=== PATIENT | male | born 1960 | race African-American/Black ===

== ENCOUNTER 2018-09-28 08:14 | Inpatient (IN) | payer OTHER ==
[~2018-09-28] VITALS: Ht 170.2 cm; Wt 57.6 kg
[2018-09-28] MEDS ORDERED: ONDANSETRON HCL 4MG/2ML INJ IV STA (08:30)
[2018-09-28] MEDS ORDERED: SODIUM CHLORIDE 0.9% 1,000 ML IV ONE ×2 (08:30→09:29)
[2018-09-28] MEDS ORDERED: LORAZEPAM 2MG/ML CPJ IV ONE ×3 (08:45→10:00)
[2018-09-28 08:59] LABS: HEMATOCRIT. 40.9 % (42.0-52.0); HEMOGLOBIN. 14.2 g/dL (14.0-18.0); MEAN CORPUSCULAR HEMOGLOBIN 34.3 pg (28.0-32.0); MEAN CORPUSCULAR VOLUME 99.1 fL (80.0-94.0); MEAN PLATELET VOLUME 6.8 fl (7.4-10.4); PLATELET 193 x1000/uL (130-400); RED BLOOD CELL COUNT 4.12 mill/uL (4.7-6.1); RED CELL DISTRIBUTION WIDTH 13.3 % (11.6-14.6)
[2018-09-28 09:05] LABS: CHLORIDE 96 mEq/L (98-107)
[2018-09-28 09:06] LABS: INR 0.9; PARTIAL THROMBOPLASTIN TIME 26.4 sec (23.4-31.0); PROTHROMBIN TIME 9.5 sec (9.6-11.0)
[2018-09-28 09:09] LABS: ETHANOL BLOOD 13 mg/dL
[2018-09-28] MEDS ORDERED: POTASSIUM CHLORIDE 20MEQ TABLET SR PO ONE (09:30)
[2018-09-28 09:42] LABS: PLATELET ESTIMATE NORMAL
[2018-09-28] MEDS ORDERED: HYDRALAZINE 20MG/ML VIAL IV PRN (16:00)
[2018-09-28] MEDS ORDERED: LORAZEPAM 2MG/ML CPJ IV PRN (16:00)
[2018-09-28] MEDS ORDERED: CLONIDINE 0.1MG TABLET PO PRN (16:00)
[2018-09-28] MEDS ORDERED: IPRATROPIUM/ALBUTEROL 0.5-3(2.5)MG/3ML NEB INH PRN (16:00)
[2018-09-28] MEDS ORDERED: DOCUSATE SODIUM 100MG CAPSULE PO PRN (16:00)
[2018-09-28] MEDS ORDERED: MAGNESIUM/ALUMINUM HYDROXIDE/SIMETHICONE 30ML UDC PO PRN (16:00)
[2018-09-28] MEDS ORDERED: GUAIFENESIN 200MG/10ML SUGAR FREE UDC PO PRN (16:00)
[2018-09-28] MEDS ORDERED: ACETAMINOPHEN 325MG TABLET PO PRN (16:00)
[2018-09-28] MEDS ORDERED: DIPHENHYDRAMINE 50MG/ML VIAL IV PRN (16:00)
[2018-09-28] MEDS ORDERED: HYDROCODONE/ACETAMINOPHEN 10/325MG TABLET PO PRN (16:00)
[2018-09-28] MEDS ORDERED: NA PHOS,M-B/NA PHOS,DI-BA ENEMA 118ML PR PRN (16:00)
[2018-09-28] MEDS ORDERED: ONDANSETRON HCL 4MG/2ML INJ IV PRN (16:00)
[2018-09-28 16:43] LABS: CLARITY URINE CLEAR (CLEAR); COLOR URINE YELLOW (YELLOW); KETONES URINE 1+ (NEGATIVE); LEUKOCYTE ESTERASE URINE NEGATIVE (NEGATIVE); NITRITE URINE NEGATIVE (NEGATIVE); OCCULT BLOOD URINE 1+ (NEGATIVE); PH URINE 5.5 (4.5-8.0); PROTEIN URINE TRACE (NEGATIVE); UROBILINOGEN URINE 0.2 E.U./dL (0.2-1.0)
[2018-09-28 16:55] LABS: *BARBITURATES SCREEN URINE NEGATIVE (NEGATIVE); CANNABINOID URINE SCREEN NEGATIVE (NEGATIVE); PHENCYCLIDINE URINE SCREEN NEGATIVE (NEGATIVE)
[2018-09-28 16:56] LABS: *AMPHETAMINES SCREEN URINE PRESUMTIVE POSITIVE (NEGATIVE); *BENZODIAZEPINES SCREEN URINE NEGATIVE (NEGATIVE); *COCAINE SCREEN URINE NEGATIVE (NEGATIVE); METHADONE URINE SCREEN NEGATIVE (NEGATIVE); OPIATES URINE SCREEN NEGATIVE (NEGATIVE)
[2018-09-28] MEDS: SODIUM CHLORIDE 0.45% 1,000 ML IV SCH (17:11)
[2018-09-28] MEDS: ENOXAPARIN 40MG/0.4ML SYR SUBCUT SCH (17:12)
[2018-09-28] MEDS: SODIUM CHLORIDE 0.9% INJ 3ML FLUSH IVF SCH (22:00)
[2018-09-28 22:35] VITALS: BP 154/80
[2018-09-29] VITALS: BP 148/70
[2018-09-29] MEDS ORDERED: ACET-2178 MT (02:11)
[2018-09-29] MEDS ORDERED: IBUP100T7 PO (02:16)
[2018-09-29] MEDS: SODIUM CHLORIDE 0.45% 1,000 ML IV SCH (03:28)
[2018-09-29 06:00] VITALS: BP 129/87
[2018-09-29] MEDS: SODIUM CHLORIDE 0.9% INJ 3ML FLUSH IVF SCH ×3 (06:46→22:00)
[2018-09-29 07:32] LABS: BASOPHILS % 0.3 % (0.0-2.0); EOSINOPHILS % 0.2 % (0.0-5.0); HEMATOCRIT. 37.8 % (42.0-52.0); HEMOGLOBIN. 13.2 g/dL (14.0-18.0); LYMPHOCYTES % 26.5 % (20.0-50.0); MEAN CORPUSCULAR HEMOGLOBIN 34.5 pg (28.0-32.0); MEAN CORPUSCULAR VOLUME 98.9 fL (80.0-94.0); MEAN PLATELET VOLUME 7.3 fl (7.4-10.4); MONOCYTES % 11.4 % (2.0-8.0); NEUTROPHILS % 61.6 % (40.0-76.0); PLATELET 158 x1000/uL (130-400); RED BLOOD CELL COUNT 3.82 mill/uL (4.7-6.1); RED CELL DISTRIBUTION WIDTH 13.1 % (11.6-14.6)
[2018-09-29 08:00] VITALS: BP 116/83
[2018-09-29 08:40] LABS: CHLORIDE 102 mEq/L (98-107)
[2018-09-29] MEDS ORDERED: ASPIRIN 81MG EC TABLET PO SCH (09:00)
[2018-09-29 09:08] LABS: T4 FREE 1.05 ng/dL (0.76-1.46)
[2018-09-29 09:09] LABS: HDL CHOLESTEROL 80 mg/dL (40-59)
[2018-09-29 09:11] LABS: LDL CHOLESTEROL 103 mg/dL (5-100)
[2018-09-29 09:24] LABS: CREATINE KINASE 1572 IU/L (39-308)
[2018-09-29 12:00] VITALS: BP 123/75
[2018-09-29] MEDS: SODIUM CHLORIDE 0.9% 1,000 ML IV SCH ×2 (14:09→23:50)
[2018-09-29] MEDS: HYDROMORPHONE HCL/PF 2MG/ML CPJ IV PRN ×2 (14:09→18:15)
[2018-09-29 16:00] VITALS: BP 113/80
[2018-09-29 16:43] LABS: T4 FREE 1.07 ng/dL (0.76-1.46)
[2018-09-29] MEDS: ENOXAPARIN 40MG/0.4ML SYR SUBCUT SCH (18:14)
[2018-09-29 20:00] VITALS: BP 129/82
[2018-09-30 00:28] VITALS: BP 121/91
[2018-09-30] MEDS: HYDROMORPHONE HCL/PF 2MG/ML CPJ IV PRN (00:34)
[2018-09-30 04:00] VITALS: BP 141/90
[2018-09-30] MEDS: SODIUM CHLORIDE 0.9% INJ 3ML FLUSH IVF SCH ×2 (05:09→16:36)
[2018-09-30 06:41] LABS: CREATINE KINASE MB FRACTION 3.8 ng/mL (0.5-3.6)
[2018-09-30 08:00] VITALS: BP 133/91
[2018-09-30] MEDS ORDERED: ASPIRIN 81MG TABLET PO SCH (09:00)
[2018-09-30 12:00] VITALS: BP 127/86
[2018-09-30] MEDS: SODIUM CHLORIDE 0.9% 1,000 ML IV SCH (13:10)
[2018-09-30 16:00] VITALS: BP 112/79
[2018-09-30 16:52] VITALS: BP 112/79
[2018-09-30] MEDS: ENOXAPARIN 40MG/0.4ML SYR SUBCUT SCH (17:23)
== END 2018-09-30 20:00 | disposition home or self-care (01) | DRG 812 ==
LOC: ER 08:14 → EDBEDREQSVC 09:54 → EDBEDREQ 09:54 → EDBEDREQTM 09:54 → EDBEDREQSVC 16:28 → EDBEDREQ 21:46 → EDBEDREQTM 21:46 → EDBEDREQSVC 21:46 → ENRESERV 21:59 → EDBEDREQSVC 22:17 → 8WST 23:21
PROVIDERS: ADMIT Internal Medicine; ATTEND Internal Medicine
DX: T43.621A Poisoning by amphetamines, accidental (unintentional), initial encounter (principal); E87.6 Hypokalemia; R42 Dizziness and giddiness; F15.10 Other stimulant abuse, uncomplicated; R00.0 Tachycardia, unspecified; Z87.891 Personal history of nicotine dependence
CPT/HCPCS: 36415; 71045; 80061; 80305; 80307; 80320; 80329; 82550; 82553; 83036; 83880; 84439; 84443; 84484; 85379; 93005; 93306; 96374; 96375; 99291; J1170; J1650; J2060; J2405; J7030; G0480